=== PATIENT | female | born 1985 | race Caucasian/White ===

== ENCOUNTER 2022-07-24 23:58 | Emergency (ER) | payer SELFPAY ==
[2022-07-24 23:59] VITALS: BP 141/88; PULSE 71; RESP 28; TEMP 36.7; O2SAT 97; BMI 40.2
[2022-07-25 00:04] VITALS: BP 125/79; PULSE 99; RESP 18; O2SAT 95
--- NOTE | 2022-07-25 00:08 | ED_ITS ---
HPI - COVID General: Chief Complaint: COVID symptoms Stated Complaint: Flu Like Symptoms Time Seen by Provider: 07/25/22 00:08 History of Present Illness: 36-year-old female comes in today for complaints of gastric pain. Patient reports that she started throwing up this morning and having gastric distress. Patient reports that other members in her house has been ill with similar symptoms. Spouse with patient states that he was ill yesterday for about 24 hours. Patient is also had some diarrhea. Patient appears nontoxic. Patient appears in mild to moderate pain. Patient complains mostly of burning in her stomach. COVID 19 common symptoms: positive chills, nausea, vomiting and diarrhea; negative dyspnea or throat pain COVID 19 other sytmptoms: negative chest pain COVID Results: No Data to Display Review of Systems Const: Reports: chills ENMT: Denies: throat pain Card: Denies: chest pain Resp: Denies: dyspnea GI: Reports: abdominal pain, nausea, vomiting and diarrhea : Denies: difficulty voiding Skin/Breast: Denies: rash Physical Exam Const: COMMON NORMALS: alert HENMT: COMMON NORMALS: normocephalic HEAD & SCALP: normocephalic MOUTH: Normal oral and palatal mucosa present Resp: COMMON NORMALS: normal respiratory effort Cardio: COMMON NORMALS: regular rate RATE: regular rate GI: AUSCULTATION: Yes Hyperactive bowel sounds present PALPATION: Yes Tenderness to palpation present (GI) (Gastric tenderness) Extremity: COMMON NORMALS: normal to inspection Neuro: SENSORIUM/ORIENTATION: Yes alert Skin: COMMON NORMALS: turgor normal GENERAL SKIN EXAM: turgor normal Course Vital Signs: Vital signs: Vital Signs Temperature 98.0 F 07/24/22 23:59 Pulse Rate 99 07/25/22 00:04 Respiratory Rate 18 07/25/22 00:04 Blood Pressure 125/79 07/25/22 00:04 Pulse Oximetry 95 07/25/22 00:04 Oxygen Delivery Me thod 07/25/22 00:04 MDM - COVID Medical Decision Making 36-year-old female comes in today with complaints of nausea vomiting diarrhea starting about 10:00 this morning. Patient comes in tonight due to gastric discomfort. Patient has tried taking some medication to help with her gastric pain including [id number] Pepcid. Patient reports minimal to no relief. Abdomen soft with some epigastric tenderness. Bowel sounds are present. Vital signs are normal. Differential diagnosis includes not limited to gastritis, gastroenteritis, pancreatitis, peptic ulcer disease. Patient reported that she had had a gallbladder removal several years ago. Patient reports she cannot get . Patient was treated for pain with morphine 4 mg, Zofran 4 mg, 1 L of IV fluids, and 40 mg of famotidine. Patient has relief after treatment. Laboratory values were unremarkable except for some mild leukocytosis which is most likely to the emesis. Patient stated understanding of care plan and felt well enough to go home and was stable. Lab Data 07/25/22 01:49 07/25/22 01:49 Laboratory Results WBC 14.2 10^3/uL (4.0-10.0) H 07/25/22 01:49 RBC 4.97 10^6/uL (4.1-5.3) 07/25/22 01:49 Hgb 14.6 g/dL (11.5-15.3) 07/25/22 01:49 Hct 44.7 % (37.0-47.0) 07/25/22 01:49 MCV 89.9 fl (81-99) 07/25/22 01:49 MCH 29.4 pg (28.0-34.0) 07/25/22 01:49 MCHC 32.7 g/dL (30.0-36.0) 07/25/22 01:49 RDW 12.4 % (12.1-15.1) 07/25/22 01:49 Plt Count 363 10^3/cmm (130-400) 07/25/22 01:49 MPV 9.5 fL (7.4-10.4) 07/25/22 01:49 Neut % (Auto) 82.2 % 07/25/22 01:49 Lymph % (Auto) 10.3 % 07/25/22 01:49 [place] % (Auto) 6.7 % 07/25/22 01:49 Eos % (Auto) 0.2 % 07/25/22 01:49 Baso % (Auto) 0.2 % 07/25/22 01:49 Neut # (Auto) 11.69 10^3/uL (1.8-7.7) H 07/25/22 01:49 Lymph # (Auto) 1.5 10^3/uL (0.8-4.8) 07/25/22 01:49 [place] # (Auto) 1.0 10^3/uL (0.2-0.9) H 07/25/22 01:49 Eos # (Auto) 0.0 10^3/uL (0.0-0.8) 07/25/22 01:49 Baso # (Auto) 0.0 10^3/uL (0.0-0.1) 07/25/22 01:49 Nucleated RBC % (auto) 0 % 07/25/22 01:49 Nucleated RBCs # 0.0 /100WBC 07/25/22 01:49 Sodium 138 mmol/L (136-145) 07/25/22 01:49 Potassium 3.6 mmol/L (3.5-5.1) 07/25/22 01:49 Chloride 107 mmol/L (98-107) 07/25/22 01:49 Carbon Dioxide 21 mmol/L (22-29) L 07/25/22 01:49 Anion Gap 13.6 (5-19) 07/25/22 01:49 BUN 12 mg/dL (6-20) 07/25/22 01:49 Creatinine 0.6 mg/dL (0.5-0.9) 07/25/22 01:49 GFR Calculation 111.9 mL/min (90-130) 07/25/22 01:49 Glucose 127 mg/dL (65-115) H 07/25/22 01:49 Calculated Osmolality 287 mOsm/kg (285-295) 07/25/22 01:49 Calcium 8.5 mg/dL (8.5-10.5) 07/25/22 01:49 Total Bilirubin 0.4 mg/dL (0.15-1.2) 07/25/22 01:49 AST 10 U/L (0-32) 07/25/22 01:49 ALT 12 U/L (0-33) 07/25/22 01:49 Alkaline Phosphatase 112 U/L (35-105) H 07/25/22 01:49 Total Protein 6.9 g/dL (6.6-8.7) 07/25/22 01:49 Albumin 4.1 g/dL (3.5-5.2) 07/25/22 01:49 Globulin 2.8 g/dL (1.3-4.6) 07/25/22 01:49 Lipase 14 U/L (13-60) 07/25/22 01:49 HCG, Qual Negative (Negative) 07/25/22 01:49 No Data to Display Discharge Plan Discharge Patient Disposition: Home Clinical Impression: Gastroenteritis Condition: Stable Prescriptions: New pantoprazole 20 mg tablet,delayed release (DR/EC) 20 mg PO DAILY Qty: 14 0RF ondansetron 4 mg tablet,disintegrating 4 mg PO Q8H PRN (Reason: nausea and vomiting) Qty: 10 0RF hydrocodone-acetaminophen 5-325 mg tablet 1 tab PO Q8H PRN (Reason: pain (scale score 7-10)) Qty: 6 0RF Discharge Orders: Discharge ED (Routine); Ordered 07/25/22 Ordered By: Chema Matute Discharge Diet: Usual diet Discharge Activity: Increase activity as tolerated Patient Instructions: Gastroenteritis (ED), Opioid Safety Activity Restrictions/Additional Instructions: Drink plenty of fluids. Sips of fluid will help maintain hydration. Increase diet as tolerated. Take medication as directed. Stay on pantoprazole for 1 week to help with gastric discomfort. Use ondansetron 4 mg every 8 hours as needed for nausea or vomiting. Use acetaminophen as needed for pain. Use hydrocodone for severe pain. Follow-up with primary care for further instruction. Return to ED for new concerns or worsening symptoms. Coding Level of Care Code ED Reservations Sales Agent for Salazar Francis
[2022-07-25] MEDS: morphine 4 mg/mL SDV 1 mL IVP (01:37)
[2022-07-25] MEDS: famotidine 20 mg/2 mL INJ 40 MG IVP (01:38)
[2022-07-25] MEDS: ondansetron 2 mg/ML SDV 2 mL 4 MG IVP (01:38)
[2022-07-25] MEDS: sodium chloride 0.9% 1,000 ML 999 ML IV (01:38)
[2022-07-25 01:59] LABS: Basophils % 0.2 %; Eosinophils % 0.2 %; Hematocrit 44.7 % (37.0-47.0); Hemoglobin 14.6 g/dL (11.5-15.3); Lymphocytes # 1.5 10^3/uL (0.8-4.8); Lymphocytes % 10.3 %; Mean Corpuscular HGB Conc 32.7 g/dL (30.0-36.0); Mean Corpuscular Hemoglobin 29.4 pg (28.0-34.0); Mean Corpuscular Volume 89.9 fl (81-99); Mean Platelet Volume 9.5 fL (7.4-10.4); Monocytes % 6.7 %; Neutrophils # 11.69 10^3/uL (1.8-7.7); Neutrophils % 82.2 %; Nucleated Red Blood Cells % 0 %; Platelet Count 363 10^3/cmm (130-400); Red Blood Count 4.97 10^6/uL (4.1-5.3); Red Cell Distribution Width 12.4 % (12.1-15.1); White Blood Count 14.2 10^3/uL (4.0-10.0)
[2022-07-25 02:03] LABS: HCG, Serum Qual Negative (Negative)
[2022-07-25 02:09] LABS: Alanine Aminotransferase 12 U/L (0-33); Albumin Level 4.1 g/dL (3.5-5.2); Alkaline Phosphatase 112 U/L (35-105); Anion Gap 13.6 (5-19); Aspartate Amino Transferase 10 U/L (0-32); Blood Urea Nitrogen 12 mg/dL (6-20); Calcium 8.5 mg/dL (8.5-10.5); Carbon Dioxide 21 mmol/L (22-29); Chloride 107 mmol/L (98-107); Globulin 2.8 g/dL (1.3-4.6); Glomerular Filtration Rate 111.9 mL/min (90-130); Glucose 127 mg/dL (65-115); Lipase 14 U/L (13-60); Osmolality Calculated 287 mOsm/kg (285-295); Potassium 3.6 mmol/L (3.5-5.1); Sodium 138 mmol/L (136-145); Total Bilirubin 0.4 mg/dL (0.15-1.2); Total Protein 6.9 g/dL (6.6-8.7)
[2022-07-25 03:20] VITALS: BP 117/75; PULSE 82; RESP 16; O2SAT 96
== END 2022-07-25 03:28 | disposition home or self-care (01) ==
PROVIDERS: Emergency Provider Nurse Practitioner Family
DX: K52.9 Noninfective gastroenteritis and colitis, unspecified (principal)
CPT/HCPCS: 80053; 83690; 84703; 85025; 96361; 96374; 96375; 99284; J2270; J2405; J3490; J7030